=== PATIENT | male | born 1950 | race Native Hawaiian/Other Pacific Islander ===

== ENCOUNTER 2017-05-19 08:04 | Outpatient (CLI) | payer OTHER | END 2017-05-19 09:05 | disposition home or self-care (01) | LOC: LABW 08:04 | PROVIDERS: Internal Medicine Cardiovascular Disease | DX: E78.4 Other hyperlipidemia (principal); Z79.899 Other long term (current) drug therapy; Z51.81 Encounter for therapeutic drug level monitoring | CPT/HCPCS: 36415; 80061 ==

== ENCOUNTER 2017-08-22 12:19 | Outpatient (CLI) | payer OTHER | END 2017-08-22 13:20 | disposition home or self-care (01) | LOC: RAD 12:19 | DX: M25.421 Effusion, right elbow (principal); M10.9 Gout, unspecified ==

== ENCOUNTER 2017-11-09 13:55 | Outpatient (CLI) | payer OTHER ==
[2017-11-09 14:21] LABS: PLATELET COUNT 254 K/uL (142-355)
[2017-11-09 14:43] LABS: POTASSIUM 3.8 mmol/L (3.6-5.2)
== END 2017-11-09 19:22 | disposition home or self-care (01) ==
LOC: LABW 13:55
PROVIDERS: Internal Medicine
DX: L29.8 Other pruritus (principal); Z79.899 Other long term (current) drug therapy
CPT/HCPCS: 36415; 80053; 81000; 84443; 85027

== ENCOUNTER 2018-05-29 11:00 | Outpatient (CLI) | payer OTHER | END 2018-05-29 20:23 | disposition home or self-care (01) | LOC: LABW 11:00 | DX: R53.82 Chronic fatigue, unspecified (principal) | CPT/HCPCS: 36415; 84402; 84403 ==

== ENCOUNTER 2019-01-09 09:34 | Outpatient (CLI) | payer OTHER ==
[2019-01-09 09:55] LABS: PLATELET COUNT 235 K/uL (142-355)
== END 2019-01-09 23:13 | disposition home or self-care (01) ==
LOC: LABW 09:34
PROVIDERS: Physician Assistant
DX: E78.1 Pure hyperglyceridemia (principal); I10 Essential (primary) hypertension; R53.82 Chronic fatigue, unspecified; N40.0 Benign prostatic hyperplasia without lower urinary tract symptoms; Z79.899 Other long term (current) drug therapy
CPT/HCPCS: 36415; 80053; 80061; 83036; 84153; 84439; 84443; 85027

== ENCOUNTER 2019-07-09 10:00 | Outpatient (CLI) | payer OTHER | END 2019-07-09 16:00 | disposition home or self-care (01) | LOC: LABW 10:00 | DX: R97.20 Elevated prostate specific antigen [PSA] (principal) | CPT/HCPCS: 36415; 84153 ==

== ENCOUNTER 2020-01-09 07:36 | Outpatient (CLI) | payer OTHER ==
[~2020-01-09] VITALS: Ht 172.7 cm; Wt 81.6 kg
== END 2020-01-09 20:52 | disposition home or self-care (01) ==
LOC: NM 07:36
DX: R07.89 Other chest pain (principal); R06.02 Shortness of breath; R53.83 Other fatigue; I10 Essential (primary) hypertension
CPT/HCPCS: A9500; J2785

== ENCOUNTER 2020-09-17 08:37 | Emergency (ER) | payer OTHER ==
[~2020-09-17] VITALS: Ht 172.7 cm; Wt 81.6 kg
[2020-09-17 08:44] VITALS: TEMP 98
[2020-09-17 09:30] LABS: PLATELET COUNT 184 K/uL (142-355)
[2020-09-17 09:32] LABS: POTASSIUM 3.7 mmol/L (3.6-5.2); SODIUM 139 mmol/L (136-145)
[2020-09-17 10:26] VITALS: BP 126/76
== END 2020-09-17 10:33 | disposition home or self-care (01) ==
LOC: ED 08:37
PROVIDERS: Family Medicine
DX: R53.1 Weakness (principal); E16.1 Other hypoglycemia
CPT/HCPCS: 36415; 80053; 81000; 82550; 82553; 84484; 85027; 93005; 99283

== ENCOUNTER 2021-06-26 09:02 | Outpatient (CLI) | payer OTHER ==
[2021-06-26 09:24] LABS: PLATELET COUNT 183 K/uL (142-355)
[2021-06-26 09:29] LABS: POTASSIUM 4.1 mmol/L (3.6-5.2)
== END 2021-06-26 19:56 | disposition home or self-care (01) ==
LOC: LABW 09:02
PROVIDERS: ATTEND Plastic Surgery Plastic Surgery Within the Head and Neck
DX: Z01.810 Encounter for preprocedural cardiovascular examination (principal); Z01.811 Encounter for preprocedural respiratory examination; Z01.812 Encounter for preprocedural laboratory examination
CPT/HCPCS: 36415; 80048; 85027; 93005

== ENCOUNTER 2021-08-17 17:07 | Emergency (ER) | payer OTHER ==
[~2021-08-17] VITALS: Ht 172.7 cm; Wt 81.6 kg
[2021-08-17 17:10] VITALS: TEMP 98.2
[2021-08-17 18:11] VITALS: BP 154/78
== END 2021-08-17 18:11 | disposition home or self-care (01) ==
LOC: ED 17:07
PROC: 0HD6XZZ Extraction of Back Skin, External Approach (ICD-10-PCS; principal; 2021-08-17)
DX: T21.23XA Burn of second degree of upper back, initial encounter (principal); T21.24XA Burn of second degree of lower back, initial encounter; T31.10 Burns involving 10-19% of body surface with 0% to 9% third degree burns; W40.8XXA Explosion of other specified explosive materials, initial encounter; Y92.89 Other specified places as the place of occurrence of the external cause
CPT/HCPCS: 99283

== ENCOUNTER 2021-12-18 10:20 | Outpatient (CLI) | payer OTHER ==
[2021-12-18 10:59] LABS: PLATELET COUNT 86 K/uL (142-355); POTASSIUM 4.6 mmol/L (3.6-5.2)
== END 2021-12-18 23:07 | disposition home or self-care (01) ==
LOC: LABW 10:20
PROVIDERS: ATTEND Internal Medicine Hematology & Oncology
DX: C44.329 Squamous cell carcinoma of skin of other parts of face (principal); C77.0 Secondary and unspecified malignant neoplasm of lymph nodes of head, face and neck; E87.6 Hypokalemia; R11.0 Nausea
CPT/HCPCS: 36415; 80053; 85027

== ENCOUNTER 2022-04-05 10:25 | Outpatient (CLI) | payer OTHER | END 2022-04-05 18:52 | disposition home or self-care (01) | LOC: US 10:25 | PROVIDERS: ATTEND Internal Medicine | DX: M79.89 Other specified soft tissue disorders (principal) ==

== ENCOUNTER 2022-06-15 09:23 | Outpatient (CLI) | payer OTHER | END 2022-06-15 19:09 | disposition home or self-care (01) | LOC: RAD 09:23 | PROVIDERS: ATTEND Internal Medicine | DX: M25.561 Pain in right knee (principal) ==